=== PATIENT | male | born 1970 | race Caucasian/White ===

== ENCOUNTER 2019-02-12 10:32 | Emergency (ER) | payer OTHER ==
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
[2019-02-12 10:55] VITALS: BP 113/58; PULSE 92; TEMP 98.2; BMI 27.8
[2019-02-12] MEDS ORDERED: KETOROLAC TROMETHAMINE 30 MG/1 ML VIAL IM ONE (10:58)
[2019-02-12] MEDS ORDERED: KETOROLAC TROMETHAMINE 30 MG/1 ML VIAL ONE (11:11)
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
== END 2019-02-12 12:40 | disposition home or self-care (01) ==
LOC: FER 10:32
PROC: 2W3CX1Z Immobilization of Right Lower Arm using Splint (ICD-10-PCS; principal; 2019-02-12)
PROC: 3E0233Z Introduction of Anti-inflammatory into Muscle, Percutaneous Approach (ICD-10-PCS; 2019-02-12)
DX: M25.531 Pain in right wrist (principal); E78.5 Hyperlipidemia, unspecified; X58.XXXA Exposure to other specified factors, initial encounter; Y93.89 Activity, other specified; Y92.159 Unspecified place in reform school as the place of occurrence of the external cause; Y99.0 Civilian activity done for income or pay
CPT/HCPCS: 73090-TC-RT-FY; 73110-TC-RT-FY; 73130-TC-RT-FY; 99284-25

== ENCOUNTER 2020-12-25 09:10 | Day surgery (SDC) | payer OTHER ==
[2020-12-23 12:51] VITALS: BMI 27.0
[2020-12-25] MEDS ORDERED: MIDAZOLAM HCL 2 MG/2 ML SINGLE DOSE VIAL ONE (10:41)
[2020-12-25] MEDS ORDERED: ROPIVACAINE HCL 0.5% 30ML VIAL ONE (10:59)
[2020-12-25] MEDS ORDERED: ONDANSETRON 4 MG/2 ML VIAL ONE ×2 (11:44→14:40)
[2020-12-25] MEDS ORDERED: DEXAMETHASONE SOD PHOSPHATE 4 MG/1 ML VIAL ONE (11:44)
[2020-12-25] MEDS ORDERED: ceFAZolin SODIUM 1 GM VIAL ONE (11:53)
[2020-12-25] MEDS ORDERED: ONDANSETRON 4 MG/2 ML VIAL IVPUSH PRN (13:35)
[2020-12-25] MEDS ORDERED: oxyCODONE HCL 5 MG TABLET PO PRN (13:35)
[2020-12-25] MEDS ORDERED: traMADol HCL 50 MG TABLET PO PRN (13:45)
[2020-12-25] MEDS ORDERED: LACTATED RINGERS SOLUTION 1,000 ML IV SCH (13:45)
[2020-12-25 14:02] VITALS: TEMP 97.7
[2020-12-25] MEDS ORDERED: traMADol HCL 50 MG TABLET ONE (14:08)
[2020-12-25 15:04] VITALS: BP 101/40; PULSE 68
== END 2020-12-25 15:46 | disposition home or self-care (01) ==
LOC: FASU 09:10
PROVIDERS: ATTEND Orthopaedic Surgery Hand Surgery
PROC: 0RBN4ZZ Excision of Right Wrist Joint, Percutaneous Endoscopic Approach (ICD-10-PCS; principal; 2020-12-25 12:02)
DX: M24.531 Contracture, right wrist (principal); S63.591D Other specified sprain of right wrist, subsequent encounter; T84.038A Mechanical loosening of other internal prosthetic joint, initial encounter; M65.9 Synovitis and tenosynovitis, unspecified; M19.031 Primary osteoarthritis, right wrist; M77.9 Enthesopathy, unspecified; X58.XXXD Exposure to other specified factors, subsequent encounter; Y79.8 Miscellaneous orthopedic devices associated with adverse incidents, not elsewhere classified; Y92.9 Unspecified place or not applicable; Z96.698 Presence of other orthopedic joint implants
CPT/HCPCS: 94760